=== PATIENT | male | born 1960 | race Caucasian/White ===

== ENCOUNTER 2023-04-19 01:17 | Day surgery (SDC) | payer OTHER, SELFPAY ==
[2023-04-14 10:18] VITALS: BMI 34.8
[2023-04-19 07:55] VITALS: BP 124/60; PULSE 62; RESP 18; TEMP 35.9; O2SAT 97
[2023-04-19] MEDS: LACTATED RINGERS 1,000 ML 150 ML IV CONT (08:15)
--- NOTE | 2023-04-19 08:25 | WPDANESEPPF ---
Anes - Initial Pre Proc Eval Procedure: Operation Date: 04/19/23 09:00 Proposed Procedures p Screening Colonoscopy - Matti Mayorga MD Date/Time: 04/19/23 08:25 Surgeon: Matti Mayorga MD Pre Op Diagnosis: family hx colon ca Patient Data Age: 62 Gender: M Height: 1.8 m Weight: 114.2 kg Last Vital Signs Temp 96.6 F L 04/19/23 07:55 Pulse 62 04/19/23 07:55 Resp 18 04/19/23 07:55 BP 124/60 04/19/23 07:55 Pulse Ox 97 04/19/23 07:55 O2 Del Method Room Air 04/19/23 07:55 Allergies Allergy/AdvReac Type Severity Reaction Status Date / Time No Known Allergies Allergy Verified 04/19/23 07:52 Home Medications Medication Instructions Recorded Confirmed Type hydrochlorothiazide 12.5 mg capsule 12.5 mg PO DAILY 04/14/23 04/19/23 History ibuprofen 600 mg tablet 600 mg PO BID PRN Pain 04/14/23 04/19/23 History metoprolol tartrate 25 mg tablet 25 mg PO DAILY 04/14/23 04/19/23 History oxcarbazepine 300 mg tablet 600 mg PO BID 04/14/23 04/19/23 History selenium sulfide 1 % shampoo See Rx Instructions .Route .COMPLEX 04/14/23 04/19/23 History triamcinolone acetonide 0.1 % 1 applic topical BID 04/14/23 04/19/23 History topical cream Patient hx anesthesia problems: none Family hx anesthesia problems: none Results Review: All pre-operative results and documents have been reviewed as part of the pre-operative evaluation. [facility] Social History Social History Smoking status: Former smoker Tobacco type: cigarettes Alcohol intake: former Alcohol use details: QUIT AGE 26 Substance use: former Living arrangements: incarcerated Spiritual care concerns: No Anes - Eval Final PreProcedure Day of Procedure 04/19/23 08:25 Patient weight: obese Heart: regular rate and rhythm Lungs: clear to auscultation Airway: Mallampati scale class II Neurological: alert and oriented Last oral intake: >/= 8 hours ASA classification: II Emergent: no Anesthetic plan: proceed Anesthesia type and monitoring: general GIVS and standard monitoring Results Review: All pre-operative results and documents have been reviewed as part of the pre-operative evaluation. Informed Consent: The patient's anesthetic plan and its attendant risks and benefits were discussed with the patient/family/POA. Questions were solicited and answers provided to the satisfaction of the patient/family/POA.
--- NOTE | 2023-04-19 08:39 | PM.HPGS ---
History of Present Illness History of Present Illness Consent: Risks, benefits, and alternatives have been discussed and questions answered. Patient agrees to proceed with procedure. Chief complaint: family hx colon ca Narrative: John Guo is a 62 year old male here for first colonoscopy, mother had colon cancer Review of Systems Constitutional: Constitutional: Denies headache(s) and Denies weakness Eyes: Eyes: Denies blurry vision ENT: Reports Normal hearing present, Denies headache(s) and Denies neck pain Cardiovascular: Cardiovascular: Denies chest pain and Denies dyspnea Respiratory: Respiratory: Denies dyspnea Gastrointestinal: Gastrointestinal: Reports no additional gastrointestinal complaints Genitourinary: Genitourinary: Denies dysuria Musculoskeletal: Musculoskeletal: Denies neck pain Integumentary/Breasts: Skin/Breast: Denies dry skin Neurologic: Reports Normal hearing present, Denies headache(s) and Denies weakness Psychiatric: Psychiatric: Denies anxiety Endocrine: Endocrine: Denies change in body appearance Hematologic/Lymphatic: Hematologic/Lymphatic: Denies easy bleeding Allergic/Immunologic: Allergic/Immunologic: Denies urticaria PMFSH Past Medical History Medical History (Updated 04/19/23 @ 08:40 by Matti Mayorga MD) Family history of colon cancer in mother Social History Social History Smoking status: Former smoker Tobacco type: cigarettes Alcohol intake: former Alcohol use details: QUIT AGE 26 Substance use: former Living arrangements: incarcerated Spiritual care concerns: No Meds Home Medications and Allergies Home Medications Medication Instructions Recorded Confirmed Type hydrochlorothiazide 12.5 mg capsule 12.5 mg PO DAILY 04/14/23 04/19/23 History ibuprofen 600 mg tablet 600 mg PO BID PRN Pain 04/14/23 04/19/23 History metoprolol tartrate 25 mg tablet 25 mg PO DAILY 04/14/23 04/19/23 History oxcarbazepine 300 mg tablet 600 mg PO BID 04/14/23 04/19/23 History selenium sulfide 1 % shampoo See Rx Instructions .Route .COMPLEX 04/14/23 04/19/23 History triamcinolone acetonide 0.1 % 1 applic topical BID 04/14/23 04/19/23 History topical cream Allergies Allergy/AdvReac Type Severity Reaction Status Date / Time No Known Allergies Allergy Verified 04/19/23 07:52 Vital Signs Vital Signs - 24 hr 04/19/23 07:55 Temperature 96.6 F L Pulse Rate 62 Respiratory Rate 18 Blood Pressure 124/60 Pulse Oximetry 97 Oxygen Delivery Room Air Exam Const: General: comfortable and no acute distress HENMT: Face/Nose/Sinus: Normal nares present Eyes: General: appearance normal, both eyes and all related structures Neck: Neck: no JVD Resp: Auscultation: clear to auscultation bilaterally Cardio: Rate: regular rate Rhythm: regular rhythm GI: Inspection: non-distended GI Palp: Yes Soft to palpation Skin: General skin exam: normal color Neuro: General: gait normal Speech: normal speech Extrem: General: normal to inspection Psych: Mental Status: mental status grossly normal Assessment and Plan Assessment and plan (1) Family history of colon cancer in mother: Code(s): Z80.0 - Family history of malignant neoplasm of digestive organs Status: Acute Assessment and Plan: colonoscopy
[2023-04-19 09:12] VITALS: BP 117/76; PULSE 60; RESP 20; O2SAT 98
[2023-04-19 09:22] VITALS: BP 130/91; PULSE 66; RESP 20; O2SAT 98
[2023-04-19 09:32] VITALS: BP 132/85; PULSE 60; RESP 16; O2SAT 99
== END 2023-04-19 09:41 | disposition home or self-care (01) ==
PROVIDERS: Visit Provider Internal Medicine Gastroenterology
PROC: 0DJD8ZZ Inspection of Lower Intestinal Tract, Via Natural or Artificial Opening Endoscopic (ICD-10-PCS; CPT 45378; principal; 2023-04-19 09:00)
DX: Z12.11 Encounter for screening for malignant neoplasm of colon (principal); D12.3 Benign neoplasm of transverse colon; K64.8 Other hemorrhoids; Z80.0 Family history of malignant neoplasm of digestive organs; Z87.891 Personal history of nicotine dependence; E66.9 Obesity, unspecified; Z68.35 Body mass index [BMI] 35.0-35.9, adult
CPT/HCPCS: 45385; 88305; J2704; J7120